=== PATIENT | male | born 1970 | race Caucasian/White ===

== ENCOUNTER 2020-04-26 12:43 | Day surgery (SDC) | payer OTHER, SELFPAY ==
--- NOTE | 2020-04-25 14:54 | SUR.PREOP ---
Left msg with pt regarding covid test, also spoke with [facility] and they will follow up on results
[2020-04-26] VITALS (7 sets, daily range): BP systolic 136–160; BP diastolic 89–104; PULSE 77–109; RESP 12–20; TEMP 36.1–36.8; O2SAT 97–100; BMI 26.6
--- NOTE | 2020-04-26 | PATH_ITS ---
[facility] Accession Number: [id number] . 01 Material submitted: . colon - COLON POLYP @ 50CM X2 . 02 Diagnosis: Colon at 50 cm, Polyps: Fragments of hyperplastic polyp (two polyps removed). [facility] 04/27/2020 1130 Local . 02 Electronically signed: . Clayton You MD, PhD, Pathologist NPI- [id number] . 01 Gross description: . COLON POLYP @ 50CM X2: Received in formalin are 3 fragment(s) of younger, soft tissue measuring 0.4 x 0.3 x 0.3 cm to 0.4 x 0.3 x 0.1 cm submitted entirely in 1 cassette(s) /QBJ 04/26/2020 2225 Local . 02 Pathologist provided ICD-10: K63.5 . 02 CPT . 656855 Performed at: 01 [facility] [address] [facility], [place], [place] [id number] MD Davin Faith MD Phone: [phone] Performed at: 02 [facility] [address] [place], [place] [id number] MD Chuyita Ulloa MD Phone: [phone]
[2020-04-26] MEDS: LACTATED RINGERS 1,000 ML 200 ML IV (13:08)
--- NOTE | 2020-04-26 13:20 | PM.HP.1 ---
History of Present Illness History of Present Illness Chief complaint: [id number] COLONOSCOPY W/POSS HEMORRHOID BANDING Narrative: 49-year-old man here for or elective diagnostic colonoscopy. He was seen in the office several months ago and at that time he was having some intermittent bright red blood per rectum. He says that the frequency in the amount has decreased significantly since last seen but it has not entirely resolved. He has no history of intestinal malignancy, his brother recently developed colon cancer. The been no other interval changes in his history since last H&P. Patient History Medical History Tobacco abuse (Acute) Family & Social History Family History Brother Cancer Social History: household members none Tobacco & Substance use: Tobacco type cigarettes Smoking Status Current every day smoker alcohol intake current alcohol intake frequency 0-2 drinks per day Substance Use Type does not use Meds Home Medications and Allergies Home Medications Medication Instructions Recorded Confirmed Type varenicline 1 mg tablet 1 mg PO BID 01/09/20 04/26/20 History Allergies Allergy/AdvReac Type Severity Reaction Status Date / Time No Known Drug Allergies Allergy Verified 04/26/20 13:07 Review of Systems Review of Systems Narrative: A 10 point review of systems is negative except as noted in the HPI Exam Vital Signs (past 8 hours): - 04/26/20 13:05 Temperature 98.2 F Pulse Rate 109 H Respiratory Rate 20 Blood Pressure 160/103 H Pulse Oximetry 98 Oxygen Delivery Method Room Air Narrative Exam Narrative: General-no acute distress, well nourished HEENT-moist mucous membranes, no scleral icterus Neck-supple, no lymphadenopathy Chest- non labored respirations, clear to auscultation bilaterally Cardiac-regular rate no peripheral edema Abdomen-soft, nontender, non distended Extremities-warm, well perfused Neurological-alert and oriented, no focal deficits Assessment & Plan Assessment and plan (1) Rectal bleeding: Status: Acute Assessment & Plan narrative: Álvaro is a 49-year-old male with history of bright red blood per rectum and a first-degree relative with colon cancer. Colonoscopy with possible hemorrhoidal banding is indicated. We discussed the risks of the procedure including bleeding perforation missed diagnosis, incontinence anal pain. His questions have been answered he is in agreement with this plan
--- NOTE | 2020-04-26 13:51 | PM.OP.ENDO ---
Operative Date/Time/Diagnoses Date of procedure: 04/26/20 Time of procedure: 13:51 Pre-op diagnosis: Family history colon cancer Post-op diagnosis: same Procedure & Clinicians Study performed: Colonoscopy Same procedure as scheduled: Yes Indications: 49-year-old man with the first-degree relative with colon cancer presents for routine screening. Surgeon: Jitendra Shah Procedure Notes SCOAP/Timeout: Performed Procedure in detail: Patient placed in left lateral decubitus position. Time out was performed. Procedural sedation was administered with Versed and Fentanyl. A rectal exam demonstrated no external hemorrhoids no internal masses. Colonoscopy scope was placed into the rectum and advanced through the colon to the cecum. The ileocecal valve was identified. The scope was then slowly withdrawn examining colon thoroughly in all directions. The colonoscopy was notable for the following 1. Two adenomatous appearing polyps at 50 cm from the anal verge for both less than 1 cm diameter removed with cold snare. 2. Sigmoid diverticulosis 3. Grade 1 internal hemorrhoids not banded 4. Qulaity of prep fair Scope withdrawal time: 24 Sedation minutes: 12 Post-procedure Recommendations: Colonscopy in 5 years Disposition: same day surgery
[2020-04-26] MEDS: MIDAZOLAM 5 MG/5 ML VIAL IV (13:52)
[2020-04-26] MEDS: fentaNYL 250 MCG/5 ML INJ IV (13:53)
--- NOTE | 2020-04-26 14:58 | SUR.PHASEII ---
Pt ready to go, ride called, pt left when ready and left in stable condition.
== END 2020-04-26 14:55 | disposition home or self-care (01) ==
PROVIDERS: PCP Family Medicine; Referring Provider Surgery; Visit Provider Surgery
PROC: 0DJD8ZZ Inspection of Lower Intestinal Tract, Via Natural or Artificial Opening Endoscopic (ICD-10-PCS; CPT 45378; principal; 2020-04-26 13:45)
DX: K63.5 Polyp of colon (principal); Z80.0 Family history of malignant neoplasm of digestive organs; K57.30 Diverticulosis of large intestine without perforation or abscess without bleeding; K64.0 First degree hemorrhoids; F17.210 Nicotine dependence, cigarettes, uncomplicated
CPT/HCPCS: 45385; 99152; J2250; J3010